=== PATIENT | male | born 2000 | race Caucasian/White ===

== ENCOUNTER 2022-09-14 19:02 | Emergency (ER) | payer BC ==
--- OUTSIDE RECORDS SUMMARY | 2022-09-14 19:26 | XMS REPORT | Continuity of Care Document ---
:2000 Author Organization [facility] t Address [address] [place] [address] [address] [place] [address] Care Team Providers Name Role Phone Chantale Sparks MD Primary Care Physician [phone] DR KARISHMA MCKEON Attending Clinician Unavailable Callum Cooper Attending Clinician WALKERDR RAHMAN Attending Clinician Unavailable DR KARISHMA MCKEON Admitting Clinician Unavailable Callum Cooper Admitting Clinician WALKER, DR RAHMAN Admitting Clinician Unavailable Payers Payer Name Policy Type Policy Number Effective Date Expiration Date S nicole 0450 [id number] 2020 00:00:00 Problems This patient has no known problems. Allergies, Adverse Reactions, Alerts Allergy Allergy Status Severity Reaction(s) Onset Inactive Treating Comm ents Source Name Type Date Date Clinician FLOR PETERSEN Active Unknown 2012-04 [facility] 05-23 [facility] 00:[facility] 00 Social History Social Habit Start Date Stop Date Quantity Comments Source Sexual orientation [facility] Gender identity [facility] Tobacco use and 2019-02-08 2019-02-08 Smokeless tobacco [facility] exposure 00:00:00 00:00:00 non-user Hospital Alcohol intake 2019-02-08 2019-02-08 Current drinker of [facility] 00:00:00 00:00:00 alcohol (finding) Hospita l History of Social 2019-02-08 2019-02-[address] function 00:00:00 00:00:00 Hospital Alcohol Comment 2019-02-08 2019-02-[address] 00:00:00 00:00:00 Hospital Sex Assigned At [birth year] [facility] 00[facility]00 [facility] Smoking Status Start Date Stop Date Source Never smoked tobacco [facility] Medications This patient has no known medications. Vital Signs Vital Name Observation Time Observation Value Comments Source Height 2021-09-09 13:55:00 182.88 CM Weight 2021-09-09 13:55:00 72.57 KG Weight 2021-01-28 11:50:00 79.37 KG Height 2021-01-28 11:50:00 185.42 CM Procedures This patient has no known procedures. Plan of Care Planned Activity Planned Date Details Comments Source Future Scheduled 2022-07-10 COVID-19 VACCINE [facility] Test 14:38:50 (#1) [code = COVID-19 VACCINE (#1)] Future Scheduled 2022-07-10 [facility]ENZA [facility]ACCINE [facility] 14:38:50 [code = INFLUENZA VACCINE] Encounters Start End Encounter Admission Attending Care Care Encounter Source Date/Time Date/Time Type Type Clinicians Facility Department ID 2021-09-09 2021-09-09 Outpatient E KARISHMA MCKEON [facility] [id number] 14[facility]50[facility]00 [facility] [place] 2021-02-07 2021-02-08 Outpatient nullFlavo [facility] [id number] [facility] 15:58:34 04:59:59 nargis Barrios [facility] 2021-02-07 2021-02-07 Outpatient nullFlavo [facility] [id number] Memoria 10:58:34 23:59:59 r kristie [place] 2021-02-07 2021-02-07 Outpatient Callum Cooper [id number] 10:58:34 23:59:59 8 2021-01-28 2021-01-28 Outpatient E JOSIAH WALKER [facility] [id number] [place] 11:47:00 14:20:00 [facility] Results Test Description Test Time Test Comments Results Result [facility] e Comments XR HAND RIGHT 2021-09-09 COMPLETE 3 VIEWS 14:33:13 *OW* [facility] 2000 Sex: M RI GHT HAND, 3 VIEWSHISTORY: PainFINDINGS:Soft tissue swelling present about the 3rd MCP joint. No fracture, dislocation or significant bony degenerative changes.IMPRESSION:So ft tissue swelling without a fracture.Electronical ly signed by: Dyllan Diaz MD 09/09/2021 2:33 PM CDT XR KNEE RIGHT 3 2021-01-28 VIEWS *OW* 13:26:13 [facility] 2000 Sex: M X- ray right knee.INDICATION: Pain, fallFINDINGS: No priors. No evidence of an acute fracture or dislocation. Mild medial and patellofemoral compartment joint space narrowing. Moderate prepatellar soft tissue edema. Mild joint effusion seen. IMPRESSION:1. No acute osseous abnormality.2. Moderate prepatellar soft tissue edema.Electronically signed by: Luciano Crockett MD 01/28/2021 1:26 PM CDT XR ANKLE RIGHT 2021-01-28 COMPLETE 3 VIEWS 13:25:56 *[facility] 2000 Sex: M EX AMINATION:XR ANKLE RIGHT COMPLETE 3 VIEWS *OWCLINICAL INDICATION:Male, 21 years year old with Unspecified fallCOMPARISON: NoneIMPRESSION: There is soft tissue swelling without fracture or malalignment. There are no osteolytic or osteoblastic lesions. The joint spaces are intact.Electronically signed by: Bhavesh Pompa MD 01/28/2021 1:25 PM CDT [employer] 8 Panel *OW* [facility] 2021-01-28 12:28:00 Test Item Value Reference Range Interpretation Comme nts GLUCOSE (test code = GGUL) 84 mg/dL 73-118 BUN (test code = GBUN) 10 mg/dL 7-22 CREATININE (test code = GCRE) 0.8 mg/dL 0.6-1.2 CK TOTAL (test code = GCK) 404 U/L 39-380 H SODIUM (test code = GNA+) 141 mmol/L 128-145 POTASSIUM (test code = GK+) 4.5 mmol/L 3.6-5.1 CHLORIDE (test code = GCL-) 112 mmol/L 98-108 H TCO2 (test code = GTC02) 27 mmol/L 18-33 CBC (INCLUDES AUTOMATED DIFFERENTIAL) *2021-01-28 12:19:00 Test Item Value Reference Range Interpretation Comments WBC (test code = WBC) 9.9 10\S\3/uL 4.5-13.0 RBC (test code = RBC) 4.88 10\S\6/uL 4.30-5.70 HGB (test code = HBG) 15.0 g/dL 14.0-18.0 HCT (test code = HCT) 45.6 % 35.0-46.0 MCV (test code = MCV) 93.5 fL 80.0-94.0 MCH (test code = MCH) 30.7 pg 27.0-31.0 MCHC (test code = MCHC) 32.9 g/dL 32.0-36.0 RDW (test code = RDW) 12.5 % 11.5-14.5 PLT (test code = PLT) 218 10\S\3/uL 130-400 MPV (test code = OMPV) 7.9 fL 6.2-10.2 NEUTROP # (test code = NE#) 6.0 10\S\3/uL 2.0-8.0 LYMPH # (test code = LY#) 2.8 10\S\3/uL 1.2-4.0 MID # (test code = GMID#) 1.1 10\S\3/uL 0.0-1.1 GRAN % (test code = GRA%) 60.5 % 35.0-73.0 LYMPH % (test code = GLY%) 28.5 % 20.0-55.0 MID % (test code = GMID%) 11.0 % 0.0-10.0 H PROTHROMBIN TIME i-STAT OW2021-01-28 12:15:00 Test Item Value Reference Range Interpretation Comments PT (test code = 12.1 s 10.0-13.0 PT1) INR (test code = 1.0 INR) INRH (test code = SUGGESTED THERAPEUTIC INRH) RANGE FOR INR: 2.5 - 3.5 For Patients with Prosthetic Valves or Patients with recurrent Thromboembolic Events 2.0 - 3.0 For Most Other Applications
[2022-09-14] MEDS ORDERED: LIDOCAINE 1% MPF 5 ML VIAL ONE (19:40)
--- NOTE | 2022-09-14 21:42 | EDPHYS ---
Physician Documentation [facility] Name: Bj Ramirez Age: 22 yrs Sex: Male : 2000 Arrival Date: 09/14/2022 Time: 19:02 Bed 9 Private MD: ED Physician Levy Boyce HPI: 09/14 21:40 This 22 yrs old Male presents to ER via Ambulatory with complaints of Laceration To kb Foot. 21:40 The patient has a laceration related to: walking on boat ramp occurred outdoors, and kb there are no complicating factors. The injury was accidental. The laceration(s) is(are) located on the lateral side of right foot. Onset: The symptoms/episode began/occurred just prior to arrival. Associated signs and symptoms: The patient has no apparent associated signs or symptoms. The patient has not experienced similar symptoms in the past. The patient has not recently seen a physician. Historical: - Allergies: 19:19 No Known Allergies; lg3 - Home Meds: 19:19 None [Active]; lg3 - PMHx: 19:19 None; lg3 - PSHx: 19:19 None; lg3 - Immunization history:: Adult Immunizations up to date, Last tetanus immunization: unknown. - Social history:: Smoking status: Patient denies any tobacco usage or history of. Patient uses alcohol, occasionally. ROS: 21:39 Constitutional: Negative for fever, chills, and weight loss. kb 21:39 Skin: Positive for laceration(s), of the lateral side of right foot. 21:39 All other systems are negative. Exam: 21:39 Constitutional: This is a well developed, well nourished patient who is awake, alert, kb and in no acute distress. Head/Face: Normocephalic, atraumatic. ENT: Moist Mucous membranes Respiratory: Respirations even and unlabored. No increased work of breathing. Talking in full sentences MS/ Extremity: Pulses equal, no cyanosis. Neurovascular intact. Full, normal range of motion. Neuro: Awake and alert, GCS 15, oriented to person, place, time, and situation. Moves all extremities. Normal gait. 21:39 Skin: injury, laceration(s), the wound is approximately 2.5 cm(s), of the lateral side of right foot, that can be described as clean, no foreign body, irregular, without bleeding. Vital Signs: 19:18 BP 121 / 84; Pulse 88; Resp 17 S; Temp 97.5(TE); Pulse Ox 99% on R/A; Weight 77.11 kg lg3 (R); Height 6 ft. 2 in. (R); 21:00 BP 114 / 78; Pulse 85; Resp 18; Pulse Ox 100% on R/A; Pain 0/10; pf1 19:18 Body Mass Index 21.83 (77.11 kg, 187.96 cm) lg3 21:00 Pain Scale: Adult pf1 Laceration: 21:39 Wound Repair of 2.5cm ( 1.0in ) subcutaneous laceration to lateral side of right foot. kb Irregularly shaped.. Distal neuro/vascular/tendon intact. Anesthesia: Wound infiltrated with 3 mls of 1% lidocaine. Wound prep: Extensive cleansing with hibiclenz by me, Wound irrigation with saline by me. Skin closed with 4 5-0 Prolene using simple sutures and sterile technique. Patient tolerated well. MDM: 19:08 Patient medically screened. kb 21:39 Differential diagnosis: superficial laceration, tendon injury, vascular injury. Data kb reviewed: vital signs, nurses notes. Counseling: I had a detailed discussion with the patient and/or guardian regarding: the historical points, exam findings, and any diagnostic results supporting the discharge/admit diagnosis, the need for outpatient follow up, a family practitioner, to return to the emergency department if symptoms worsen or persist or if there are any questions or concerns that arise at home. 09/14 19:19 Order name: Dressing - Wound; Complete Time: 21:51 kb 09/14 19:19 Order name: Gloves, Sterile; Complete Time: 21:51 kb 09/14 19:19 Order name: Prolene, Sutures; Complete Time: 21:51 kb 09/14 19:19 Order name: Setup Suture Tray; Complete Time: 21:51 kb Administered Medications: 21:20 Drug: Lidocaine Infiltration (1 %) 1 vials {Note: per LUISA calderon.} Volume: 5 ml; Route: pf1 Infiltration; 21:55 Drug: Doxycycline PO 100 mg Route: PO; pf1 22:19 Follow up: Response: No adverse reaction; Marked relief of symptoms pf1 21:55 Drug: Tetanus-Diphtheria Toxoid IM Adult 0.5 ml {Electrical Engineering Manager: [employer] Card To Get Approved For. Exp: pf1 09/15/2023. Lot #: [id number]. } Route: IM; Site: right deltoid; 22:19 Follow up: Response: No adverse reaction; Marked relief of symptoms pf1 Disposition Summary: 09/14/22 21:41 Discharge Ordered Location: Home kb Condition: Stable kb Diagnosis - Laceration without foreign body of foot kb Followup: kb - With: Emergency Department - When: As needed - Reason: Worsening of condition Followup: kb - With: Private Physician - When: 2 - 3 days - Reason: Recheck today's complaints, Continuance of care, Re-evaluation by your physician Discharge Instructions: - Discharge Summary Sheet kb - Laceration Care, Adult, [id number] kb Forms: - Medication Reconciliation Form kb - Thank You Letter kb - Antibiotic Education kb - Prescription Opioid Use kb Prescriptions: - Doxycycline Hyclate 100 mg Oral Tablet - take 1 tablet by ORAL route every 12 hours; 20 tablet; Refills: 0, Product kb Selection Permitted Signatures: Jesica Dykes FNP-C FNP-Renata Lacey, RN RN lg3 Hoda Aguayo, RN RN pf1
--- NOTE | 2022-09-14 21:42 | ER ---
Nurse's Notes [facility] Name: Bj Ramirez Age: 22 yrs Sex: Male : 2000 Arrival Date: 09/14/2022 Time: 19:02 Bed 9 Private MD: Diagnosis: Laceration without foreign body of foot Presentation: 09/14 19:18 Chief complaint: Patient states: cut the outside of my right foot on something while at lg3 the boat ramp about an hour ago. Coronavirus screen: Client denies travel out of the [place] in the last 14 days. At this time, the client does not indicate any symptoms associated with coronavirus-19. Ebola Screen: No symptoms or risks identified at this time. Complicating Factors: There are no complicating factors for this patient. Initial Sepsis Screen: Does the patient meet any 2 criteria? No. Patient's initial sepsis screen is negative. Does the patient have a suspected source of infection? No. Patient's initial sepsis screen is negative. Risk Assessment: Do you want to hurt yourself or someone else? Patient reports no desire to harm self or others. Onset of symptoms was September 14, 2022. 19:18 Method Of Arrival: Ambulatory lg3 19:18 Acuity: OTTO 4 lg3 Triage Assessment: 19:19 General: Appears in no apparent distress. comfortable, Behavior is calm, cooperative. lg3 Pain: Complains of pain in right foot. EENT: No deficits noted. No signs and/or symptoms were reported regarding the EENT system. Neuro: No deficits noted. Tracey Agitation-Sedation Scale (RASS): 0 - Alert and Calm Level of Consciousness is awake, alert, obeys commands, Oriented to person, place, time, situation. Cardiovascular: No deficits noted. Denies chest pain, shortness of breath. Respiratory: No deficits noted. Airway is patent Respiratory effort is even, unlabored, Respiratory pattern is regular, symmetrical. GI: No deficits noted. No signs and/or symptoms were reported involving the gastrointestinal system. : No deficits noted. No signs and/or symptoms were reported regarding the genitourinary system. Derm: Wound noted lateral side of right foot. Musculoskeletal: No deficits noted. No signs and/or symptoms reported regarding the musculoskeletal system. Injury Description: Laceration sustained to lateral side of right foot. Historical: - Allergies: 19:19 No Known Allergies; lg3 - Home Meds: 19:19 None [Active]; lg3 - PMHx: 19:19 None; lg3 - PSHx: 19:19 None; lg3 - Immunization history:: Adult Immunizations up to date, Last tetanus immunization: unknown. - Social history:: Smoking status: Patient denies any tobacco usage or history of. Patient uses alcohol, occasionally. Screenin:19 [facility] ED Fall Risk Assessment (Adult) History of falling in the last 3 months, pf1 including since admission No falls in past 3 months (0 pts) Confusion or Disorientation No (0 pts) Intoxicated or Sedated No (0 pts) Impaired Gait No (0 pts) Mobility Assist Device Used No (0 pt) Altered Elimination No (0 pt) Score/Fall Risk Level 0 - 2 = Low Risk Oriented to surroundings, Maintained a safe environment, Educated pt \T\ family on fall prevention, incl call for assistance when getting out of bed, Assessed \T\ reinforced patient's understanding of fall precautions, Provided non-skid footwear, Hourly rounding (assess needs \T\ fall precautionary measures) done, Used ambulatory aids as needed (educated on \T\ assisted with), Used gait belt as appropriate. 19:19 Abuse screen: Denies threats or abuse. Nutritional screening: No deficits noted. pf1 Tuberculosis screening: No symptoms or risk factors identified. Assessment: 19:19 General: Appears in no apparent distress. comfortable, well groomed, well developed, pf1 Behavior is calm, cooperative, appropriate for age, quiet. 19:19 Pain: Complains of pain in lateral side of right foot. Neuro: No deficits noted. Level pf1 of Consciousness is awake, alert, obeys commands, Oriented to person, place, time, situation. Cardiovascular: No deficits noted. Capillary refill < 3 seconds Patient's skin is warm and dry. Respiratory: No deficits noted. Airway is patent Respiratory effort is even, unlabored, Respiratory pattern is regular, symmetrical. GI: No deficits noted. No signs and/or symptoms were reported involving the gastrointestinal system. : No deficits noted. No signs and/or symptoms were reported regarding the genitourinary system. EENT: No deficits noted. No signs and/or symptoms were reported regarding the EENT system. Derm: Wound noted lateral side of right foot. Musculoskeletal: No deficits noted. No signs and/or symptoms reported regarding the musculoskeletal system. 19:19 Injury Description: Laceration is 0.5 to 2.5 cm long, not bleeding. pf1 20:00 Reassessment: Patient appears in no apparent distress at this time. Patient is alert, pf1 oriented x 3, equal unlabored respirations, skin warm/dry/pink. Patient states symptoms have improved. 21:00 Reassessment: Patient appears in no apparent distress at this time. Patient is alert, pf1 oriented x 3, equal unlabored respirations, skin warm/dry/pink. Patient states feeling better. Patient states symptoms have improved. Vital Signs: 19:18 BP 121 / 84; Pulse 88; Resp 17 S; Temp 97.5(TE); Pulse Ox 99% on R/A; Weight 77.11 kg lg3 (R); Height 6 ft. 2 in. (R); 21:00 BP 114 / 78; Pulse 85; Resp 18; Pulse Ox 100% on R/A; Pain 0/10; pf1 19:18 Body Mass Index 21.83 (77.11 kg, 187.96 cm) lg3 21:00 Pain Scale: Adult pf1 ED Course: 19:06 Patient arrived in ED. im 19:08 [facility]C [facility] kb 19:08 Levy Boyce MD is Attending Physician. kb 19:19 Triage completed. lg3 19:19 Arm band placed on left wrist. lg3 19:19 Patient has correct armband on for positive identification. Bed in low position. Call pf1 light in reach. 19:30 Wound care: to laceration located on lateral side of right foot was cleaned with pf1 Betadine, Patient tolerated well. 20:00 No provider procedures requiring assistance completed. pf1 20:00 Patient did not have IV access during this emergency room visit. pf1 Administered Medications: 21:20 Drug: Lidocaine Infiltration (1 %) 1 vials {Note: per LUISA calderon.} Volume: 5 ml; Route: pf1 Infiltration; 21:55 Drug: Doxycycline PO 100 mg Route: PO; pf1 22:19 Follow up: Response: No adverse reaction; Marked relief of symptoms pf1 21:55 Drug: Tetanus-Diphtheria Toxoid IM Adult 0.5 ml {Dimensional Inspector: [employer]. Exp: pf1 09/15/2023. Lot #: [id number]. } Route: IM; Site: right deltoid; 22:19 Follow up: Response: No adverse reaction; Marked relief of symptoms pf1 Medication: 21:55 Vaccine Information Statement (VIS) provided today. Questions and/or concerns pf1 addressed. VIS edition date: November 10, 2020. Outcome: 21:41 Discharge ordered by MD. serrato 22:19 Discharged to home ambulatory. pf1 22:19 Condition: improved 22:19 Discharge instructions given to patient, Instructed on discharge instructions, follow up and referral plans. Demonstrated understanding of instructions, follow-up care, medications, wound care, Prescriptions given X 1. 22:19 Patient left the ED. pf1 Signatures: Jesica Dykes, ISHMAEL-C FINISH GRINDER-Renata Lacey, RN RN 3 Hoda Aguayo RN RN pf1 Marium Landaverde Corrections: (The following items were deleted from the chart) 09/15 00:26 09/14 22:28 Patient left the ED. pf1 pf1
[2022-09-14] MEDS ORDERED: DOXYCYCLINE 100 MG CAP PO ONE (22:00)
[2022-09-14] MEDS ORDERED: TETANUS & DIPHTHERIA TOX,ADULT 0.5 ML VIAL ONE (22:01)
[2022-09-14 23:15] VITALS: BP 121/84; TEMP 97.5; O2SAT 99
== END 2022-09-14 22:28 | disposition home or self-care (01) ==
LOC: ER 19:02
PROC: 0HQMXZZ Repair Right Foot Skin, External Approach (ICD-10-PCS; principal; 2022-09-14)
DX: S91.311A Laceration without foreign body, right foot, initial encounter (principal); Z23 Encounter for immunization
CPT/HCPCS: 90471; 90714; 99284; 12001; J2001